=== PATIENT | female | born 2000 | race Caucasian/White ===

== ENCOUNTER 2019-04-29 16:06 | Emergency (ER) | payer BC, MEDICAID ==
[~2019-04-29] VITALS: Ht 165.1 cm; Wt 69.4 kg
--- NOTE | 2019-04-29 16:12 | NUR ---
Attempted to triage, pt not found in ER waiting room.
--- NOTE | 2019-04-29 16:30 | NUR ---
Attempted to triage pt again, pt was not found in ER waiting room or outside ER.
[2019-04-29] MEDS ORDERED: PREN1TAB81 PO (16:59)
--- NOTE | 2019-04-29 17:00 | NUR ---
Pt was triaged and placed in room 4b. Pt stated she will go to the hospital where she is registered instead.
== END 2019-04-29 17:05 | disposition left against medical advice (07) ==
LOC: ER 16:10
DX: Z53.21 Procedure and treatment not carried out due to patient leaving prior to being seen by health care provider (principal)
CPT/HCPCS: A4663